=== PATIENT | male | born 1970 | race Caucasian/White ===

== ENCOUNTER → 2024-05-03 13:25 | Outpatient (REF) | payer MEDICARE, SELFPAY | LOC: HWRAD 13:25 | PROVIDERS: ATTENDING PHYSICIAN Internal Medicine Rheumatology; FAMILY PHYSICIAN Internal Medicine | DX: M10.9 Gout, unspecified (principal); M25.539 Pain in unspecified wrist; M25.579 Pain in unspecified ankle and joints of unspecified foot; M79.643 Pain in unspecified hand; M79.673 Pain in unspecified foot | CPT/HCPCS: 73100; 73130; 73600; 73630 ==

== ENCOUNTER → 2024-05-08 13:20 | Outpatient (REF) | payer MEDICARE, SELFPAY | LOC: HWRAD 13:20 | PROVIDERS: ATTENDING PHYSICIAN Specialist; FAMILY PHYSICIAN Internal Medicine | DX: N18.32 Chronic kidney disease, stage 3b (principal) | CPT/HCPCS: 76770 ==